=== PATIENT | female | born 1950 | race Caucasian/White ===

== ENCOUNTER 2020-01-20 10:33 | Outpatient (CLI) | payer BC, SELFPAY ==
--- NOTE | 2020-01-20 11:00 | USCV_ITS ---
Awilda Martin Age: 69 Gender: F : 1950 Exam Date: 01/20/2020 11:13 Ordering Phys: Edilson Mijares MD ([email or web address]) Technologist: KOURTNEY SEBASTIAN [place] [facility] [place]: H[place]ORY: PROCEDURES: FINDINGS: There is no evidence of bilateral deep vein thrombosis. No evidence of superficial thrombosis in the bilateral saphenous system. There is no evidence of reflux in the deep system on the right. There is evidence of reflux in the popliteal vein in the deep system on the left. No venous reflux noted in the bilateral greater saphenous vein. No venous reflux noted in the bilateral small saphenous vein. The veins were found to be easily compressible with spontaneous blood flow. Non pulsatile flow pattern. CONCLUSIONS No evidence of DVT in the above-mentioned identifiable veins. Significant venous reflux of greater than 1000 ms was noted in the left popliteal vein No significant venous reflux was noted in the superficial veins Venous dimensions and depth from the surface are as mentioned above Dr Charly Lund MD [facility] (Electronically Signed) Final Date: 20 January 2020 17:38 S
== END 2020-01-20 10:34 | disposition home or self-care (01) ==
LOC: RAD 10:36
PROVIDERS: PCP Family Medicine; Visit Provider Internal Medicine Cardiovascular Disease
DX: I83.893 Varicose veins of bilateral lower extremities with other complications (principal)
CPT/HCPCS: 93970

== ENCOUNTER 2020-09-16 12:04 | Outpatient (CLI) | payer MEDICARE, SELFPAY ==
--- NOTE | 2020-09-16 12:45 | USCV_ITS ---
Awilda Martin Age: 70 Gender: F : 1950 Exam Date: 09/16/2020 12:24 Ordering Phys: Edilson Mijares MD ([email or web address]) Technologist: Donya Wyman [place]am Location: [facility] [place]ication: HISTORY: PROCEDURES: FINDINGS: All deep veins demonstrated compressibility without evidence of intraluminal thrombus or increased echogenicity. Reflux determinations were made with the patient in the dependent position, the weight being on the contralateral leg. Vein measurements and reflux times are listed below were applicable. Venous reflux is demonstrated in the RIGHT greater saphenous vein with a spectral Doppler display of greater than 500 milliseconds at the level below the knee. Venous reflux is demonstrated in the LEFT greater saphenous vein with a spectral Doppler display of greater than 500 milliseconds at the level distal to the SFJ and below the knee. The veins were found to be easily compressible with spontaneous blood flow. CONCLUSIONS 1. No evidence of DVT in the above-mentioned identifiable veins. 2. Significant venous reflux of greater than 500 ms were noted at the below-knee segment of the greater saphenous vein on the right side. The venous segment was 0.55 cm in diameter and at a depth of 2.32 cm from the surface. 3. On the left side, significant venous reflux of greater than 500 ms were noted at the saphenofemoral junction and at the below-knee segment of the greater saphenous vein. These venous segments were 0.64 and 0.32 cm in diameter respectively. They were greater than 1 cm deep from the surface 4. No deep vein thrombosis or any significant reflux in the deep veins. Dr Charly Lund MD [facility] (Electronically Signed) Final Date: 18 September 2020 22:22 S
== END 2020-09-16 12:05 | disposition home or self-care (01) ==
PROVIDERS: PCP Family Medicine; Visit Provider Internal Medicine Cardiovascular Disease
DX: I83.893 Varicose veins of bilateral lower extremities with other complications (principal); I87.2 Venous insufficiency (chronic) (peripheral)
CPT/HCPCS: 93970

== ENCOUNTER 2020-10-21 08:56 | Day surgery (SDC) | payer MEDICARE, SELFPAY ==
[2020-10-20 11:34] LABS: Basophils # 0.1 10^3/uL (0.0-0.1); Eosinophils # 0.5 10^3/uL (0.0-0.8); Eosinophils % 6.6 %; Hematocrit 38.7 % (37.0-47.0); Hemoglobin 11.9 g/dL (11.5-15.3); Lymphocytes # 1.4 10^3/uL (0.8-4.8); Lymphocytes % 18.4 %; Mean Corpuscular HGB Conc 30.7 g/dL (30.0-36.0); Mean Corpuscular Hemoglobin 29.2 pg (28.0-34.0); Mean Corpuscular Volume 95.1 fL (81-99); Mean Platelet Volume 11.2 fL (7.4-10.4); Monocytes # 0.7 10^3/uL (0.2-0.9); Neutrophils # 5.03 10^3/uL (1.8-7.7); Neutrophils % 64.6 %; Nucleated Red Blood Cells % 0 %; Platelet Count 208 10^3/cmm (130-400); Red Blood Count 4.07 10^6/uL (4.1-5.3); Red Cell Distribution Width 13.2 % (12.1-15.1); White Blood Count 7.8 10^3/uL (4.0-10.0)
[2020-10-20 12:04] LABS: Blood Urea Nitrogen 16 mg/dL (8-23); Calcium 9.5 mg/dL (8.5-10.5); Carbon Dioxide 29 mmol/L (22-29); Chloride 101 mmol/L (98-107); Glucose 111 mg/dL (65-115); Osmolality Calculated 288 mOsm/kg (285-295); Sodium 138 mmol/L (136-145)
--- NOTE | 2020-10-21 09:00 | USCV_ITS ---
Awilda Martin Age: 70 Gender: F : 1950 Exam Date: 10/21/2020 09:29 Ordering Phys: Edilson Mijares MD Technologist: Mary Deluca Exam Location: [facility] – [place] Indication: HISTORY: ABLATION PROCEDURES: guidance provided in CDL for ablation of left GSV FINDINGS: guidance provided in CDL for ablation of left GSV The common femoral, saphenofemoral junction, distal to the saphenofemoral junction and the proximal segment of the greater saphenous vein were identified and interrogated. The segments were found to be patent with no evidence of thrombus. No measurements were performed CONCLUSIONS Patent saphenofemoral junction, distal to the saphenofemoral junction and proximal greater saphenous vein segments. No evidence of venous thrombosis in these segments Dr Charly Lund MD [facility] (Electronically Signed) Final Date: 22 October 2020 08:28 S
[2020-10-21 09:20] VITALS: BP 191/95; PULSE 67; RESP 18; TEMP 36.8; O2SAT 96; BMI 38.0
[2020-10-21] MEDS: diazePAM 5 mg Tablet 10 MG PO (09:20)
--- NOTE | 2020-10-21 09:25 | W.PM.OPSFHP ---
Same Day Surgery H&P Indication for Procedure/HPI DATE OF PROCEDURE: October 21, 2020 CHIEF COMPLAINT/INDICATIONFOR SURGICAL PROCEDURE: Symptomatic varicose veins with CEAP classification of 4a PREOP DIAGNOSIS: Symptomatic varicose veins with significant more than 500 ms reflux PLANNED PROCEDRUE: Operation Date: 10/21/20 10:00 Proposed Procedures p Venous Ablations 00415 I83.893(Not Applicable) - Edilson Mijares MD 70-year-old female past medical history significant for obesity congestive heart failure hypertension who has been struggling with lower extremity cramps pain edema neuropathy and worsening of varicose veins for the last 3 years. She has failed compression stocking over last 6-month or more. Ultrasound for reflux study confirmed more than 500 ms of significant reflux at the level of saphenofemoral junction on the left and below the knee as well as in the right leg below knee. She is more symptomatic with left than the right leg. Today she is here for scheduled left great saphenous vein ablation. Patient has been discussed in detail all the risk benefit and alternative of the procedure by myself. She has been explained the risk for foot drop due to neuropathy, skin burn, DVT, pulmonary embolism, worsening of varicose veins as a result of procedure. She understands it clearly and would like to proceed with it. Medications/Allergies* Home Medications Medication Instructions Recorded Confirmed Type acetaminophen 500 mg tablet 500 mg PO Q6H PRN 12/23/19 10/20/20 History ergocalciferol (vitamin D2) 1,250 50,000 unit PO DAILY cap 12/23/19 10/20/20 History mcg (50,000 unit) capsule latanoprost 0.005 % eye drops 1 drop OPHTHALMIC (EYE) DAILY 12/23/19 10/20/20 History oxybutynin chloride 15 mg 15 mg PO DAILY 12/23/19 10/20/20 History tablet,extended release 24 hr tramadol 50 mg tablet 50 mg PO Q8H PRN 12/23/19 10/20/20 History allopurinol 300 mg tablet 300 mg PO DAILY tab 02/20/20 10/20/20 History lisinopril 10 mg tablet 10 mg PO DAILY tab 02/20/20 10/20/20 History aspirin 81 mg tablet,delayed 81 mg PO DAILY 08/27/20 10/20/20 History release atenolol 25 mg tablet 25 mg PO BID tab 08/27/20 10/20/20 History chlorthalidone 25 mg tablet 25 mg PO DAILY 08/27/20 10/20/20 History sitagliptin 100 mg tablet 50 mg PO DAILY tab 08/27/20 10/20/20 History Allergies/Adverse Reactions Allergy/AdvReac Type Severity Reaction Status Date / Time baclofen Allergy Unknown Unknown Verified 02/20/20 15:48 ibuprofen Allergy Unknown Unknown Verified 02/20/20 15:48 metformin Allergy Unknown Unknown Verified 02/20/20 15:48 naproxen Allergy Unknown Unknown Verified 02/20/20 15:48 prednisone Allergy Unknown Unknown Verified 02/20/20 15:48 Pertinent History/Comorbid Conditions* Medical History (Updated 08/31/20 @ 21:23 by Edilson Mijares MD) Diastolic heart failure GERD (gastroesophageal reflux disease) HTN (hypertension) Varicose veins of bilateral lower extremities with other complications Family History (Updated 12/23/19 @ 11:17 by Keri Buchanan LPN) Diabetes Brother Heart disease Father Hypertension Mother Multiple myeloma Father Social History Smoking and tobacco status: never smoked Pertinent Exam Findings alert, oriented x 3 and clear to auscultation bilaterally Recommendations Surgery/Procedure today Coding Level of Care Code New 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
[2020-10-21] MEDS: nitroglycerin 1 gm/inch oint Pkt 1 INCH TOPICAL (10:00)
[2020-10-21 10:45] VITALS: BP 167/76; PULSE 67; RESP 18; TEMP 36.8; O2SAT 95
--- NOTE | 2020-10-21 10:45 | P.PCN_ITS ---
Procedure Note: Date of procedure: 10/21/20 Pre-procedure diagnosis: Symptomatic Varicose Vein Procedure: Status post radiofrequency ablation of left great saphenous vein Other Information: The insufficient saphenous vein of the left side verified by ultrasound and diagrammed on the overlying skin. The varicose tributary veins and suitable access sites were identified and mapped. The affected left great saphenous vein area prepped and draped in the usual sterile fashion. The patient was placed in reverse Trendelenburg position. Tumescent was instilled in the skin overlying the access site for local an esthesia. The vein was accessed PROXIMAL, MID, DISTAL - THIGH/CALF using ultrasound guidance and the Seldinger technique, a guidewire was introduced through the needle, which was then exchanged over the guidewire for a 7F sheath. The RF catheter was placed on the sterile field, flushed and wiped down, prepared, and connected by a sterile cable. The patient was placed in Trendelenburg position. After RF catheter position was verified by ultrasound, tumescent anesthesia was infiltrated, under ultrasound guidance, precisely into the perivenous compartment along the entire length of vein. After the RF catheter position was again confirmed with ultrasound imaging, and under direct external compression along the length of the heating element, RF energy was applied. The vein was segmentally ablated until the treatment length is completed. Device temperature was maintained at 120 +/- degrees C with an initial power level of 40W dropping to below 20W for each treatment. Total vein length treated 32 cm. Total cycles of RF 10. Time 3 minutes 20 seconds . Repeat ultrasound of the left great saphenous vein was performed, confirming successful treatment. The catheter and sheath were withdrawn and hemostasis established with direct pressure. After assuring hemostasis, the skin incision over the saphenous vein was closed with a bandage and graduated compression stocking( (s) was applied from the level of the foot to the most proximal length of the thigh. Tumescent used 561 mL. Normal saline waste 80 mL. Lidocaine wasted 10 mL. 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
== END 2020-10-21 11:10 | disposition home or self-care (01) ==
PROVIDERS: PCP Family Medicine; Visit Provider Internal Medicine Cardiovascular Disease
DX: I83.893 Varicose veins of bilateral lower extremities with other complications (principal); Z79.82 Long term (current) use of aspirin; I11.0 Hypertensive heart disease with heart failure; I50.30 Unspecified diastolic (congestive) heart failure; K21.9 Gastro-esophageal reflux disease without esophagitis; Z83.3 Family history of diabetes mellitus; Z82.49 Family history of ischemic heart disease and other diseases of the circulatory system
CPT/HCPCS: 36415; 36475; 80048; 85025; 85610; C1769; C1888; C1894

== ENCOUNTER 2020-10-28 08:19 | Outpatient (CLI) | payer MEDICARE, SELFPAY ==
--- NOTE | 2020-10-28 08:45 | USCV_ITS ---
NOTE: Report was unsigned for reason: Order was edited. Original Signature date and time was: 11/10/20 @0920 Awilda Martin Age: 70 Gender: F : 1950 Exam Date: 10/28/2020 08:45 Ordering Phys: Edilson Mijares MD ([email or web address]) Technologist: aMry Deluca [place] [facility] [place] [facility] [place] Indication: POST ABLATION HISTORY: Post ablation PROCEDURES: Venous duplex imaging was performed in only the left lower extremity. The following venous structures were evaluated: common femoral vein, profunda vein, proximal portion of the greater saphenous vein, superficial femoral vein, and the popliteal vein. In addition, the posterior tibial and peroneal trunk were evaluated. Grayscale and doppler images were obtained. Reflux maneuvers were performed with patient in the standing position. FINDINGS: No evidence of DVT seen in any deep vessels visualized at this time. GSV is has been ablated. No thrombus seen at or near the junction. Patent saphenofemoral junction. The inferior epigastric vein was not visualized. The deep veins were found to be easily compressible with spontaneous blood flow. CONCLUSIONS 1. No evidence of DVT. 2. Patent saphenofemoral junction. 3. The greater saphenous vein appears to be ablated Dr Charly Lund MD [facility] (Electronically Signed) Final Date: 10 Nov 2020 09:20 S MTDD
== END 2020-10-28 08:20 | disposition home or self-care (01) ==
LOC: RAD 08:28
PROVIDERS: PCP Family Medicine; Visit Provider Internal Medicine Cardiovascular Disease
DX: I83.893 Varicose veins of bilateral lower extremities with other complications (principal)
CPT/HCPCS: 93971

== ENCOUNTER → 2022-05-11 09:14 | Outpatient (BNVA) | payer MEDICARE, SELFPAY | PROVIDERS: PCP Family Medicine; Visit Provider Podiatrist Foot & Ankle Surgery | DX: S90.852A Superficial foreign body, left foot, initial encounter (principal); X58.XXXA Exposure to other specified factors, initial encounter; L03.116 Cellulitis of left lower limb | CPT/HCPCS: 10120; 73620; 73630; 87070; 87075; 87077; 87186; 87205; 99204 ==

== ENCOUNTER → 2022-05-18 10:50 | Outpatient (BNVA) | payer MEDICARE, SELFPAY | PROVIDERS: PCP Family Medicine; Visit Provider Podiatrist Foot & Ankle Surgery | DX: S90.852D Superficial foreign body, left foot, subsequent encounter (principal); X58.XXXD Exposure to other specified factors, subsequent encounter; L03.116 Cellulitis of left lower limb | CPT/HCPCS: 99213 ==

== ENCOUNTER 2022-11-23 17:11 | Emergency (ER) | payer MEDICARE, SELFPAY ==
[2022-11-23 17:27] VITALS: BP 161/69; PULSE 70; RESP 18; O2SAT 98
--- NOTE | 2022-11-23 17:36 | ECG_ITS ---
[facility] Test Date: 2022-11-23 Pat Name: Awilda Martin Department: Room: Gender: Female [employer]er [employer]: : 1950 Requested By: Aaron Simon Order Number: [id number] Teri MD: Charly Lund M.D. Measurements Intervals [place] Rate: 82 P: 43 AR: 172 QRS: 6 QRSD: 82 T: 50 QT: 411 QTc: 482 Interpretive Statements SINUS RHYTHM WITH FREQUENT SUPRAVENTRICULAR PREMATURE COMPLEXES POSSIBLE ANTERIOR MYOCARDIAL INFARCTION , PROBABLY OLD [30 ms Q WAVE IN V3/V4, OR R < 0.2 mV IN V4] ABNORMAL RHYTHM ECG INTERPRETATION BASED ON A DEFAULT AGE OF 40 YEARS No previous ECG available for comparison Electronically Signed On 11-23-2022 22:23:45 CDT by Charly Lund M.D. [email or web address]
--- NOTE | 2022-11-23 17:42 | XRR_ITS ---
PROCEDURE INFORMATION: Exam: XR Chest Exam date and time: 11/23/2022 5:47 PM Age: 72 years old Clinical indication: Shortness of breath; Additional info: Cp TECHNIQUE: Imaging protocol: Radiologic exam of the chest. Views: 1 view. COMPARISON: No relevant prior studies available. FINDINGS: Lungs: There is minimally increased lung markings, which can be seen in the setting of mild pulmonary congestion. Streaky bibasilar atelectasis noted. Pneumonia should be excluded clinically. Pleural spaces: Unremarkable. No pleural effusion. No pneumothorax. Heart/Mediastinum: Mildly enlarged heart. Bones/joints: Degenerative changes of the spine seen. XR/XR chest 1V portable [id number] IMPRESSION: Nonspecific imaging findings, which can be seen with mild pulmonary congestion or pneumonia. Clinical correlation is recommended. Marked
--- NOTE | 2022-11-23 17:43 | ED_ITS ---
HPI - Chest Pain General: Chief Complaint: Chest Pain Stated Complaint: A fib Time Seen by Provider: 11/23/22 17:18 Source: patient Mode of arrival: EMS Limitations: no limitations History of Present Illness: This patient was referred to the emergency department from the [facility] in [place]. The patient states that she was seen as an ER follow-up. She apparently had low potassium a few days ago and they had given her multiple dose of potassium in the emergency department in [place] and then sent home and told to hold off on her diuretics. She states the last couple days she has had increasing swelling of her legs but she started wearing her support hose and that is improved some. She apparently was noted to be in atrial fibrillation at the clinic and was sent to this emergency department. She is unaware of any history of a any kind of arrhythmia to include atrial fibrillation etc. She does admit that occasionally she feels what she describes as heaviness feeling in her chest but it does not come on with activity she seems to notice it when she is quiet and lying in bed at times. She denies syncope. She denies any shortness of breath. 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 She denies any recent illness and has been eating and drinking normally. She is a non-smoker, does not use alcohol. She denies any other constitutional complaints at this time. She does have a history of heart failure and was previously followed in cardiology clinic at this facility. Associated symptoms: Deny dyspnea, fever(s), nausea, palpitations, syncope or vomiting Review of Systems Const: Denies: fever(s) or chills Eyes: Denies: change in vision ENMT: Denies: throat pain, odynophagia, nasal discharge or nasal congestion Card: Reports: edema; Denies: chest pain, palpitations, irregular heart rhythm, syncope or pre-syncope Resp: Denies: dyspnea, productive cough or non-productive cough GI: Denies: nausea, vomiting or diarrhea : Denies: difficulty voiding, dysuria or urinary frequency Musc: Reports: extremity swelling; Denies: neck pain, back pain or extremity pain Skin/Breast: Denies: rash or pruritus Neuro: Denies: headache(s), numbness in extremities or weakness in extremities PFS ED PFSH: Medical History Asthma Diabetes mellitus Diabetic neuropathy Diastolic heart failure Fibromyalgia GERD (gastroesophageal reflux disease) HTN (hypertension) Hyperlipidemia Osteoarthritis Sjogrens syndrome Varicose veins of bilateral lower extremities with other complications Surgical History S/P cataract extraction S/P cholecystectomy S/P hysterectomy S/P knee replacement Status post laser ablation of incompetent vein Family History Mother Hypertension CAD (coronary artery disease) Cancer Stroke Father Multiple myeloma Heart disease CAD (coronary artery disease) Dementia Brother Diabetes Denies family history of Clotting disorder Chronic kidney disease (CKD) Suicide Anesthesia complication Bleeding disorder Lung disease Social History Alcohol intake: never Substance/Drug Use: never Physical Exam Narrative: EXAM NARRATIVE: She is quite alert and animated and answers questions in a goal-directed fashion and appears to be in no acute distress. No dyspnea with conversation. Const: COMMON NORMALS: no acute distress, average body habitus and patient oriented x3 GENERAL APPEARANCE: cooperative and comfortable HENMT: COMMON NORMALS: normocephalic, Normal nasal mucous membranes and turbinates present and moist oral mucous membranes HEAD & SCALP: no rmocephalic NOSE: Normal nasal mucous membranes and turbinates present Eye: COMMON NORMALS: Equal, round and reactive pupils present, EOMs intact bilaterally and conjunctivae normal CONJUNCTIVA: Yes conjunctivae normal PUPIL: Yes Equal, round and reactive pupils present Neck/C-Spine: COMMON NORMALS: full ROM, no lymphadenopathy, supple, no JVD and Thyroid normal THYROID: Thyroid normal Chest: COMMONS NORMALS: normal inspection of the chest and normal palpation of entire chest wall Resp: COMMON NORMALS: normal respiratory effort, No use of accessory muscles and clear to auscultation bilaterally AUSCULTATION: clear to auscultation bilaterally Cardio: COMMON NORMALS: no JVD, No murmurs present (Cardio) and Peripheral pulses 2+ throughout RHYTHM: abnormal rhythm irregularly irregular PERIPHERAL PULSES: Peripheral pulses 2+ throughout GI: COMMON NORMALS: Normal to inspection, nondistended, normoactive bowel sounds present, Soft to palpation and non-tender PALPATION: Yes Soft to palpation : COMMON NORMALS: Yes no CVA tenderness BLADDER/KIDNEY EXAM: Yes no CVA tenderness Back/Pelvis: COMMON NORMALS: no CVA tenderness, thoracic and lumbar spine normal to inspection, no thoracic nor lumbar tenderness and straight leg raise negative bilaterally Extremity: COMMON NORMALS: normal to inspection, capillary refill normal and no calf tenderness NARRATIVE EXTREMITY EXAM: 2+ pretibial edema bilaterally. No erythema. Neurovascular intact. Neuro: COMMON NORMALS: patient oriented x3, moves all extremities, no focal motor deficits and no sensory deficits noted CRANIAL NERVES: Yes CN normal except as noted Psych: COMMON NORMALS: mental status grossly normal Skin: COMMON NORMALS: no rashes or lesions noted, turgor normal and no jaundice GENERAL SKIN EXAM: no rashes or lesions noted and turgor normal Course Reevaluation(s): Reevaluation #1: Patient remains clinically stable and subjectively improved. She has had good urine output from her Lasix and has not displayed any sustained arrhythmias. He is not having ongoing symptoms of chest pain, shortness of breath etc. at this t faisal. We reviewed and discussed current findings and their implications with both the patient and now family who are present. Discussed continued observation versus continued treatment at home with diuretics, magnesium, potassium replacement. She voiced understanding of her discussion and opted for the latter with cardiology follow-up to be arranged. Also discussed return precautions in detail. Time: 22:48 Vital Signs: Vital signs: Vital Signs Pulse Rate 65 11/23/22 22:30 Respiratory Rate 19 H 11/23/22 22:30 Blood Pressure 150/61 11/23/22 22:30 Pulse Oximetry 99 11/23/22 22:30 Oxygen Delivery Me thod Nasal Cannula 11/23/22 22:30 Oxygen Flow Rate 2 11/23/22 22:30 MDM - Chest Pain Medical Decision Making This patient with a known history of diastolic congestive heart failure was referred to the emergency department from primary care clinic. She was seen there in a follow-up from an emergency department visit at [place]. She was noted to have some heart rhythm irregularities and was not seen by her regular physician and wind up being referred to this facility. She previously sought care through cardiology services here but has not seen anyone in this facility for approximately 3 years. She has previously had her diuretics held for several days due to issues with her potassium. She states she has had some increasing lower extremity edema. Clinical examination revealed her to be alert in no acute distress. Focal findings on her examination included some pretibial lower extremity edema. No evidence of auscultatory findings on the chest examination of concern. She did have occasional extrasystole on her electronic device monitor as well as subsequent EKGs but no ischemic changes. Screening laboratories were obtained to evaluate for heart failure versus ACS versus other potential etiologies of her symptoms. She did not display any signs to suggest heart block, ischemic changes etc. Chest x-ray showed some mild pulmonary congestion and her BNP was elevated without any prior available at this facility for comparison. Initial troponin was slightly elevated but again no dynamic EKG changes noted and subsequent troponin was essentially unchanged making this troponin elevation likely due to her chronic diastolic heart failure and not ongoing ischemia at this time. We received the benefit of IV diuretics as well as oral potassium and magnesium replacement. She is stable at this time but we did discuss the need to continue ongoing magnesium therapy and addition of potassium therapy to ensure that she is able to maintain a normal serum potassium level. A consult was also placed in via high school social studies teacher to have her in cardiology clinic for follow-up for her heart failure and possible repeat echocardiogram. And additional medication adjustments as indicated. We also discussed return precautions in detail. They were appreciative of care and voiced understanding. Medical Records I reviewed the patient's medical records. Prior history of diastolic heart failure. Lab Data I reviewed the patient's lab results. 11/23/22 19:09 11/23/22 19:09 Radiology Impressions Chest X-Ray 11/23/22 17:42 IMPRESSION: Nonspecific imaging findings, which can be seen with mild pulmonary congestion or pneumonia. Clinical correlation is recommended. Marked Laboratory Results WBC 6.5 10^3/uL (4.0-10.0) 11/23/22 19:09 RBC 3.90 10^6/uL (4.1-5.3) L 11/23/22 19:09 Hgb 11.8 g/dL (11.5-15.3) 11/23/22 19:09 Hct 36.7 % (37.0-47.0) L 11/23/22 19:09 MCV 94.1 fl (81-99) 11/23/22 19:09 MCH 30.3 pg (28.0-34.0) 11/23/22 19:09 MCHC 32.2 g/dL (30.0-36.0) 11/23/22 19:09 RDW 14.0 % (12.1-15.1) 11/23/22 19:09 Plt Count 147 10^3/cmm (130-400) 11/23/22 19:09 MPV 12.2 fL (7.4-10.4) H 11/23/22 19:09 Neut % (Auto) 65.7 % 11/23/22 19:09 Lymph % (Auto) 20.1 % 11/23/22 19:09 Taney % (Auto) 8.4 % 11/23/22 19:09 Eos % (Auto) 4.9 % 11/23/22 19:09 Baso % (Auto) 0.6 % 11/23/22 19:09 Neut # (Auto) 4.29 10^3/uL (1.8-7.7) 11/23/22 19:09 Lymph # (Auto) 1.3 10^3/uL (0.8-4.8) 11/23/22 19:09 Taney # (Auto) 0.6 10^3/uL (0.2-0.9) 11/23/22 19:09 Eos # (Auto) 0.3 10^3/uL (0.0-0.8) 11/23/22 19:09 Baso # (Auto) 0.0 10^3/uL (0.0-0.1) 11/23/22 19:09 Nucleated RBC % (auto) 0 % 11/23/22 19:09 Nucleated RBCs # 0.0 /100WBC 11/23/22 19:09 Sodium 142 mmol/L (136-145) 11/23/22 19:09 Potassium 3.2 mmol/L (3.5-5.1) L 11/23/22 19:09 Chloride 105 mmol/L (98-107) 11/23/22 19:09 Carbon Dioxide 28 mmol/L (22-29) 11/23/22 19:09 Anion Gap 12.2 (5-19) 11/23/22 19:09 BUN 13 mg/dL (8-23) 11/23/22 19:09 Creatinine 0.5 mg/dL (0.5-0.9) 11/23/22 19:09 GFR Calculation Not Reportable 11/23/22 19:09 Glucose 80 mg/dL (65-115) 11/23/22 19:09 Calculated Osmolality 293 mOsm/kg (285-295) 11/23/22 19:09 Calcium 8.5 mg/dL (8.5-10.5) 11/23/22 19:09 Magnesium 1.6 mg/dL (1.7-2.3) L 11/23/22 19:09 Total Bilirubin 0.4 mg/dL (0.15-1.2) 11/23/22 19:09 AST 22 U/L (0-32) 11/23/22 19:09 ALT 21 U/L (0-33) 11/23/22 19:09 Alkaline Phosphatase 70 U/L (35-105) 11/23/22 19:09 Troponin T Baseline 21 ng/L (0-10) H 11/23/22 19:09 Troponin T 120 Minute 21.49 ng/L (0-10) H 11/23/22 21:00 Delta Troponin T 0.49 ABS# (0-10) 11/23/22 21:00 NT-Pro-B Natriuret Pep 1807 pg/mL (0-125) H 11/23/22 19:09 Total Protein 6.3 g/dL (6.6-8.7) L 11/23/22 19:09 Albumin 3.5 g/dL (3.5-5.2) 11/23/22 19:09 Globulin 2.8 g/dL (1.3-4.6) 11/23/22 19:09 EKG Data EKG 1: I personally reviewed and interpreted this EKG as follows: Interpretation: Contemporaneous review of resting EKG reveals a ventricular rate of 82 bpm. Appears to be underlying sinus rhythm with occasional supraventricular extra beat. No acute ST-T wave changes noted. She has loss of R wave anteriorly suggestive of possible remote anterior infarct.No prior tracings available within the system. EKG 2: I personally reviewed and interpreted this EKG as follows: Interpretation: Repeat electrocardiogram this same visit reveals a ventricular rate of 56 bpm with a NV interval, QRS duration, corrected QT interval in the normal range. Sinus bradycardia. Evidence of she has evidence of possible sinus arrhythmia. No acute ischemic changes noted. Discharge Plan Discharge Patient Disposition: Home Clinical Impression: Diastolic heart failure Condition: Stable Prescriptions: No Action latanoprost 0.005 % drops 1 drop ophthalmic (eye) DAILY acetaminophen [Tylenol Extra Strength] 500 mg tablet 500 mg PO Q6H PRN (Reason: Pain) tramadol 50 mg tablet 50 mg PO Q8H PRN (Reason: Pain) isosorbide mononitrate 30 mg tablet extended release 24 hr 30 mg PO BID Qty: 180 3RF Januvia 100 mg tablet 50 mg PO DAILY atenolol 25 mg tablet 25 mg PO BID ergocalciferol (vitamin D2) 1,250 mcg (50,000 unit) capsule 50,000 unit PO .weekly oxybutynin chloride 15 mg tablet extended release 24 hr 15 mg PO DAILY allopurinol 300 mg tablet 300 mg PO DAILY lisinopril 10 mg tablet 10 mg PO DAILY aspirin [Adult Low Dose Aspirin] 81 mg tablet,delayed release (DR/EC) 81 mg PO DAILY amoxicillin-pot clavulanate 875-125 mg tablet 1 tab PO Q12H 10 Days Qty: 20 0RF Rx Instructions: Take one tablet by mouth every 12 hours until gone pantoprazole 40 mg tablet,delayed release (DR/EC) See Rx Instructions .ROUTE .COMPLEX Qty: 90 2RF Dose Instruction: TAKE 1 TABLET BY MOUTH EVERY EVENING Rx Instructions: TAKE 1 TABLET BY MOUTH EVERY EVENING ciprofloxacin HCl 500 mg tablet 500 mg PO Q12H 10 Days Qty: 20 0RF Rx Instructions: Take one tablet by mouth every 12 hours until gone Discharge Orders: Discharge ED (Routine); Ordered 11/23/22 Ordered By: Aaron Simon Referrals: Shavon Haywood DO [Primary Care Provider] - 2 weeks (Hypokalemia and hypomagnesemia) Discharge Diet: Low Salt Discharge Activity: Increase activity as tolerated Patient Instructions: Opioid Safety, Pain Management Activity Restrictions/Additional Instructions: Resume all your usual medications to include your diuretic as well as your potassium. Obtain magnesium oxide 400 mg [id number] and take 1 pill daily in addition to your other medications. We also recommend taking your second diuretic pill earlier in the day perhaps approximately 5 PM to allow for better sleep hygiene. We have placed a consult for cardiology and you should be receiv ing communication via high school social studies teacher in the cardiology clinic for follow-up appointment within the next 2 to 3 weeks. We also recommend following up with your doctor in approximately 2 weeks to repeat blood test for potential potassium and magnesium levels. If it anytime you develop sustained chest pain greater than 20 to 30 minutes, shortness of breath, any concerns whatsoever return to this or the nearest emergency department. 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
[2022-11-23 18:55] VITALS: BP 154/67; PULSE 66; RESP 16; O2SAT 99
[2022-11-23 19:29] LABS: Basophils % 0.6 %; Eosinophils # 0.3 10^3/uL (0.0-0.8); Eosinophils % 4.9 %; Hematocrit 36.7 % (37.0-47.0); Hemoglobin 11.8 g/dL (11.5-15.3); Lymphocytes # 1.3 10^3/uL (0.8-4.8); Lymphocytes % 20.1 %; Mean Corpuscular HGB Conc 32.2 g/dL (30.0-36.0); Mean Corpuscular Hemoglobin 30.3 pg (28.0-34.0); Mean Corpuscular Volume 94.1 fl (81-99); Mean Platelet Volume 12.2 fL (7.4-10.4); Monocytes # 0.6 10^3/uL (0.2-0.9); Monocytes % 8.4 %; Neutrophils # 4.29 10^3/uL (1.8-7.7); Neutrophils % 65.7 %; Nucleated Red Blood Cells % 0 %; White Blood Count 6.5 10^3/uL (4.0-10.0)
--- NOTE | 2022-11-23 19:43 | ECG_ITS ---
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 Measurements Intervals Bagley Rate: 56 P: 87 WY: 184 QRS: 9 QRSD: 77 T: 42 QT: 447 QTc: 435 Interpretive Statements SINUS BRADYCARDIA WITH MARKED SINUS ARRHYTHMIA POSSIBLE ANTERIOR MYOCARDIAL INFARCTION , PROBABLY OLD [30 ms Q WAVE IN V3/V4, OR R < 0.2 mV IN V4] Compared to ECG 11/23/2022 17:32:12 Sinus rhythm no longer present Myocardial infarct finding still present Electronically Signed On 11-23-2022 22:55:15 CDT by Charly Lund M.D. [id number]
[2022-11-23 19:56] LABS: Troponin(5th) Baseline 21 ng/L (0-10)
[2022-11-23 19:58] LABS: Platelet Count 147 10^3/cmm (130-400)
[2022-11-23 20:00] VITALS: BP 157/66; PULSE 55; RESP 20; O2SAT 99
[2022-11-23 20:05] LABS: Alanine Aminotransferase 21 U/L (0-33); Albumin Level 3.5 g/dL (3.5-5.2); Alkaline Phosphatase 70 U/L (35-105); Blood Urea Nitrogen 13 mg/dL (8-23); Calcium 8.5 mg/dL (8.5-10.5); Carbon Dioxide 28 mmol/L (22-29); Chloride 105 mmol/L (98-107); Globulin 2.8 g/dL (1.3-4.6); Glucose 80 mg/dL (65-115); Magnesium 1.6 mg/dL (1.7-2.3); NT Pro B Type Natriuretic Pept 1807 pg/mL (0-125); Osmolality Calculated 293 mOsm/kg (285-295); Sodium 142 mmol/L (136-145); Total Bilirubin 0.4 mg/dL (0.15-1.2); Total Protein 6.3 g/dL (6.6-8.7)
[2022-11-23 20:08] LABS: Anion Gap 12.2 (5-19); Aspartate Amino Transferase 22 U/L (0-32); Potassium 3.2 mmol/L (3.5-5.1)
[2022-11-23 21:00] VITALS: BP 165/71; PULSE 68; RESP 16; O2SAT 100
[2022-11-23] MEDS: magnesium oxide 400 mg tablet 800 MG PO (21:15)
[2022-11-23 21:22] LABS: Troponin 5 2HR 21.49 ng/L (0-10)
[2022-11-23 21:23] LABS: Troponin 5 2HR Delta 0.49 ABS# (0-10)
[2022-11-23] MEDS: FUROsemide 10 mg/mL SDV 4mL 40 MG IVP (21:51)
[2022-11-23] MEDS: potassium bicarb 25 mEq Tablet PO (21:51)
[2022-11-23 22:30] VITALS: BP 150/61; PULSE 65; RESP 19; O2SAT 99
[2022-11-23 22:58] VITALS: BP 156/67; PULSE 68; RESP 23; O2SAT 98
--- NOTE | 2022-11-24 10:57 | PC.NURSE ---
Addendum entered by Megan Purvis 01/26/23 07:05: Patient had a follow up appointment scheduled with heart care - patient did attend appointment Addendum entered by Megan Purvis 11/29/22 12:32: Patient has a follow up appointment scheduled for Friday, January 20, 2023 at 11:[address] Perla at [facility]. Original Note: Patient seen in the ED and referred to [facility] for CHF. TCM sent message to call pt with an appt.
== END 2022-11-23 23:06 | disposition home or self-care (01) ==
PROVIDERS: Emergency Provider Emergency Medicine; PCP Family Medicine
DX: I11.0 Hypertensive heart disease with heart failure (principal); I50.30 Unspecified diastolic (congestive) heart failure; Z79.82 Long term (current) use of aspirin; E11.9 Type 2 diabetes mellitus without complications; E78.5 Hyperlipidemia, unspecified
CPT/HCPCS: 36415; 71045; 80053; 83735; 83880; 84484; 85025; 93005; 96374; 99285; J1940

== ENCOUNTER → 2023-01-20 09:23 | Outpatient (BNVA) | payer MEDICARE, SELFPAY | PROVIDERS: PCP Family Medicine; Visit Provider Internal Medicine Cardiovascular Disease | DX: I11.0 Hypertensive heart disease with heart failure (principal); I50.30 Unspecified diastolic (congestive) heart failure | CPT/HCPCS: 99214 ==

== ENCOUNTER 2023-01-25 09:59 | Outpatient (CLI) | payer MEDICARE, SELFPAY ==
--- NOTE | 2023-01-25 10:15 | USCV_ITS ---
Awilda Martin Age: 72 Gender: F : 1950 Exam Date: 01/25/2023 10:16 Ordering Phys: Georgiana Perla MD ([email or web address]) Technologist: Star Garcia Exam Location: [facility] [place] Indication: surgical clearance BP: 142 / 72 HR: 78 Rhythm: Sinus Technical Quality: Adequate MEASUREMENTS (Male / Female) Normal Values 2D ECHO LVOT Diameter 2.0 cm LV Ejection Fraction MOD 2C 67.3 % LV Ejection Fraction 2C AL 67.1 % LA Diameter 4.2 cm LA Width 3.7 cm LA Height 5.0 cm RA Width 4.0 cm RA Height 5.3 cm Aorta at Sinotubular Diameter 2.2 cm IVC Diameter 1.8 cm M-MODE Aortic Annulus Diameter 2.6 cm LA Ao Ratio MM 1.5 MV E Point Septal Separation 0.4 cm DOPPLER AV Peak Velocity 127.0 cm/s LVOT Peak Velocity 100.0 cm/s AV Area Cont Eq vti 2.8 cm squared AV Area Cont Eq pk 2.5 cm squared MV Peak Velocity 170.0 cm/s MV Area PHT 3.7 cm squared Mitral E to A Ratio 3.5 MV E' Velocity 72.0 cm/s Mitral E to MV E' Ratio 11.6 Mitral E to LV E' Lateral Ratio 10.9 Mitral E to LV E' Septal Ratio 12.6 TR Peak Velocity 240.9 cm/s TR Peak Gradient 23.2 mmHg TR Mean Velocity 193.2 cm/s TR Mean Gradient 15.7 mmHg TR Velocity Time Integral 69.8 cm Right Atrial Pressure 3.0 mmHg Pulmonary Artery Systolic Pressu 26.2 mmHg PV Peak Velocity 77.7 cm/s RV Acceleration Time 0.1 s RV Ejection Time 0.3 s RV AcT/ET 0.4 FINDINGS Left Ventricle Normal left ventricular size, systolic function and wall thickness, with no regional wall motion abnormalities. Left ventricular ejection fraction is estimated at 70 %. Rhythm precludes evaluation of diastolic function. Right Ventricle Normal right ventricular size and systolic function. Right ventricular systolic pressure 28 mmHg. Right Atrium Normal right atrial size. Left Atrium Normal left atrial size. Mitral Valve Mild mitral annular calcification. No mitral valve stenosis. Mild mitral valve regurgitation. Aortic Valve Structurally normal trileaflet aortic valve. No aortic valve stenosis. No aortic valve regurgitation. Tricuspid Valve Structurally normal tricuspid valve. No tricuspid valve stenosis. Mild tricuspid valve regurgitation. Pulmonic Valve Structurally normal pulmonic valve. No pulmonary valve stenosis. Trace pulmonary valve regurgitation. Pericardium No pericardial effusion. Aorta Normal size aortic root and proximal ascending aorta. IVC Normal IVC dimension with >50% respiratory change of the inferior vena cava. CONCLUSIONS 1. Normal left ventricular size, systolic function and wall thickness, with no regional wall motion abnormalities. Left ventricular ejection fraction is estimated at 70 %. 2. Mild mitral and tricuspid valve regurgitation. 3. Pulmonary artery pressure estimated at 28 mm Hg. 4. No prior similar studies to compare. Georgiana Perla MD (Electronically Signed) Final Date: 26 January 2023 21:18 S
== END 2023-01-25 10:00 | disposition home or self-care (01) ==
PROVIDERS: PCP Family Medicine; Visit Provider Internal Medicine Cardiovascular Disease
DX: Z01.818 Encounter for other preprocedural examination (principal); R06.02 Shortness of breath; I34.0 Nonrheumatic mitral (valve) insufficiency; I07.1 Rheumatic tricuspid insufficiency
CPT/HCPCS: 93306

== ENCOUNTER → 2023-07-28 10:27 | Outpatient (BNVA) | payer MEDICARE, SELFPAY | PROVIDERS: PCP Family Medicine; Visit Provider Nurse Practitioner Family | DX: I11.0 Hypertensive heart disease with heart failure (principal); I50.30 Unspecified diastolic (congestive) heart failure; I48.0 Paroxysmal atrial fibrillation; I45.9 Conduction disorder, unspecified | CPT/HCPCS: 93005; 99214 ==

== ENCOUNTER → 2024-01-29 09:44 | Outpatient (BNVA) | payer MEDICARE, SELFPAY | PROVIDERS: PCP Family Medicine; Visit Provider Internal Medicine Cardiovascular Disease | DX: R61 Generalized hyperhidrosis (principal); I11.0 Hypertensive heart disease with heart failure; I50.32 Chronic diastolic (congestive) heart failure; I83.893 Varicose veins of bilateral lower extremities with other complications; E78.2 Mixed hyperlipidemia; I48.0 Paroxysmal atrial fibrillation; E08.9 Diabetes mellitus due to underlying condition without complications | CPT/HCPCS: 99215 ==

== ENCOUNTER 2024-03-15 08:55 | Outpatient (CLI) | payer MEDICARE, SELFPAY ==
--- NOTE | 2024-03-15 | ECG_ITS ---
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 Interpretive Statements NAME OF STUDY: LEXISCAN SESTAMIBI STRESS TEST INDICATION: CHF, PROCEDURE: At the baseline, the EKG revealed atrial fibrillation with a controlled ventricular response rate.. The baseline heart was 70 bpm with a blood pressue of 147/74 mm of Hg Lexiscan was infused over a period of 20 seconds. A total of 0.4 milligrams of Lexiscan was infused. The stress phase was continued for a total of 5 minutes. Heart rate at the end of the stress phase was 82 bpm with a blood pressure 147/74 mm of Hg. The EKG at the peak infusion revealed no significant changes. Sestamibi was injected 20 seconds after the Lexiscan infusion. Heart rate at the end of the recovery phase was 79 bpm with a blood pressure of 154/74 mm of Hg. CONCLUSION: 1. No significant EKG changes with the LexiScan infusion 2. No LexiScan induced chest pain or cardiac arrhythmia 3. Normal blood pressure and heart rate response 4. Sestamibi/sestamibi perfusion scan pending; see separate report. Electronically Signed On 03-15-2024 20:16:48 CDT by Charly Lund M.D. [id number]
[2024-03-15 09:16] VITALS: BMI 25.7
--- NOTE | 2024-03-15 09:18 | NMCV_ITS ---
NM rodrigo perf SPECT r/s* [id number] Awilda Martin Age: 74 Gender: F : 1950 Exam Date: 03/15/2024 10:15 Ordering Phys: Charly Lund MD ([email or web address]) Technologist: ULISES Coelho Exam Location: [facility] Indications: chf STRESS TEST Please see separate stress test report in [facility] for full findings IMAGE PROTOCOL Rest/Stress 1 Lexiscan Day Radiopharmaceutical Dose (mCi) Administration Site Administered by Rest: Tc-99m 10.8 IV Kerry Huggins, [employer] Sestamibi Stress:Tc-99m 32.9 IV Kerry Huggins, [employer] Sestamibi Rest: 15-Mar-2024 60 Discovery 630 Stress: 15-Mar-2024 30 Discovery 630 0.4mg Lexiscan. Images obtained in supine and prone position. SPECT RESULTS Technical Quality: Good Raw Data Analysis: Normal Image Corrections: No attenuation or motion correction applied Summed Stress Score: 2 Summed Rest Score: 1 Summed Difference Score: 2 PERFUSION FINDINGS Small area of slightly decreased tracer uptake was noted in the apical inferior and apical lateral region. Significant reversibility was noted in this area. FUNCTIONAL RESULTS (calculated via Gated SPECT) Stress Image LV EF (%): 69 Stress EDV (mL):84 TID: 0.94 Stress ESV (mL):26 FUNCTIONAL FINDINGS: Segmental wall motion analysis revealing no gross wall motion abnormalities IMPRESSIONS 1. Myocardial perfusion imaging revealing a small area of slight reversibility involving the apical inferior and apical lateral regions suggesting ischemia distribution of the right coronary artery/circumflex artery. 2. Normal LV ejection fraction of 69%. 3. LV wall motion analysis revealing no gross wall motion abnormalities. 4. Normal LV volume No similar previous studies are available for comparison Dr Charly Lund MD [facility] (Electronically Signed) Final Date: 15 March 2024 21:04 S
[2024-03-15] MEDS: regadenoson 0.4 Mg/5 ml Syringe IVP (11:00)
[2024-03-15 11:10] VITALS: BP 154/74; PULSE 76
== END 2024-03-15 08:56 | disposition home or self-care (01) ==
PROVIDERS: PCP Family Medicine; Visit Provider Internal Medicine Cardiovascular Disease
DX: Z98.61 Coronary angioplasty status (principal); R94.39 Abnormal result of other cardiovascular function study
CPT/HCPCS: 36415; 78452; 93017; 96374; A9500; J2785

== ENCOUNTER → 2024-08-08 12:22 | Outpatient (BNVA) | payer MEDICARE, SELFPAY | PROVIDERS: PCP Family Medicine; Visit Provider Internal Medicine Cardiovascular Disease | DX: I48.0 Paroxysmal atrial fibrillation (principal); I83.893 Varicose veins of bilateral lower extremities with other complications; I11.0 Hypertensive heart disease with heart failure; I50.32 Chronic diastolic (congestive) heart failure; E11.9 Type 2 diabetes mellitus without complications | CPT/HCPCS: 99214 ==

== ENCOUNTER 2024-08-11 18:15 | Emergency (ER) | payer MEDICARE, SELFPAY ==
[2024-08-11 18:29] VITALS: BP 188/103; PULSE 92; RESP 17; TEMP 36.7; O2SAT 99; BMI 35.4
--- NOTE | 2024-08-11 20:11 | XRR_ITS ---
PROCEDURE INFORMATION: Exam: XR Left Hand Exam date and time: 08/11/2024 8:24 PM Age: 74 years old Clinical indication: Injury or trauma; Fall; Left; Laceration to ulnar/posterior side of lt hand TECHNIQUE: Imaging protocol: Radiologic exam of the left hand. Views: 3 or more views. COMPARISON: No relevant prior studies available. FINDINGS: Bones/joints: No acute osseous abnormality. The joint spaces are maintained. First CMC joint degenerative changes. Mild interphalangeal joint degenerative changes. Soft tissues: No significant soft tissue abnormality. A radiodense foreign body can not be visualized at this time. XR/XR hand LT min 3V* [id number] IMPRESSION: As above.
--- NOTE | 2024-08-11 20:14 | W.ED.FALL ---
HPI - Fall General: Chief Complaint: Fall Stated Complaint: fall left leg, hip, back, and hand lac Time Seen by Provider: 08/11/24 19:49 Source: patient Mode of arrival: ambulatory Limitations: no limitations History of Present Illness: Patient is a 74-year-old female that presents to the emergency department with an injury to the back of her left hand after a fall. Patient is unsure why she fell on her patio but states she thinks she tripped on a crack as her patio is very rough. She states she fell straight down onto her buttocks. She denies any head injury or loss of consciousness. She states she is not on any blood thinners. She does not report any loss of bowel or bladder control. She reports some mild pain down her left thigh from where she fell and on the back of her left hand where the cut is. She is unsure of her last tetanus immunization so booster was given in the emergency department. She denies any headache or back pain at this time. She presents to the emergency department for further evaluation and treatment. Associated symptoms-after fall: Reports difficulty walking (Chronic, unchanged); Denies abdominal pain, chest pain, headache(s), hematuria or neck pain Related Data Home Medications ?Medication ?Instructions ?Recorded ?Confirmed acetaminophen 500 mg tablet 500 mg PO Q6H PRN Pain 12/23/19 08/08/24 (Tylenol Extra Strength) tramadol 50 mg tablet 50 mg PO Q8H PRN Pain 12/23/19 08/08/24 aspirin 81 mg tablet,delayed 81 mg PO DAILY 08/27/20 08/08/24 release (Adult Low Dose Aspirin) atenolol 25 mg tablet 25 mg PO BID 08/27/20 08/08/24 calcium 1,000 mg (as 1 tab PO DAILY 01/20/23 08/08/24 carbonate)-vitamin D3 20 mcg (800 unit) tablet cranberry 500 mg capsule 500 mg PO BID 01/20/23 08/08/24 potassium chloride 20 mEq 40 meq PO BID 01/20/23 08/08/24 tablet,extended release bumetanide 1 mg tablet 1 mg PO BID 01/29/24 08/08/24 latanoprost 0.005 % eye drops 1 drp ophthalmic (eye) DAILY 08/08/24 08/08/24 magnesium oxide 400 mg PO DAILY PRN 08/08/24 08/08/24 Previous Rx's ?Medication ?Instructions ?Recorded isosorbide mononitrate 30 mg 30 mg PO BID #180 tabs 12/23/19 tablet,extended release 24 hr amlodipine 5 mg tablet (Norvasc) 5 mg PO DAILY #90 tabs 08/08/24 Allergies Allergy/AdvReac Type Severity Reaction Status Date / Time baclofen Allergy Unknown Unknown Verified 08/08/24 12:57 ibuprofen Allergy Unknown Unknown Verified 08/08/24 12:57 metformin Allergy Unknown Unknown Verified 08/08/24 12:57 naproxen Allergy Unknown Unknown Verified 08/08/24 12:57 prednisone Allergy Unknown Unknown Verified 08/08/24 12:57 Review of Systems Const: Denies: fever(s) or chills Eyes: Denies: change in vision ENMT: Denies: throat pain or ear or mastoid pain Card: Reports: edema (Chronic, unchanged); Denies: chest pain Resp: Denies: dyspnea, productive cough or wheezing GI: Denies: abdominal pain, nausea or vomiting : Denies: flank pain, dysuria or hematuria Musc: Reports: other (Patient does report some left thigh pain in the muscle); Denies: neck pain or back pain Skin/Breast: Reports: other (Laceration dorsal aspect of the left hand); Denies: rash, pruritus, skin pain or skin swelling Neuro: Reports: difficulty walking (Chronic, unchanged); Denies: headache(s), numbness in extremities or weakness in extremities Psych: Denies: anxiety Endo: Denies: polyuria or polydipsia Christoph/Lymph: Denies: petechiae All/Imm: Denies: urticaria or throat swelling PFSH ED PFSH: Medical History Atrial fibrillation Osteoarthritis Fibromyalgia Hyperlipidemia Asthma Diabetic neuropathy Diabetes mellitus Sjogrens syndrome GERD (gastroesophageal reflux disease) HTN (hypertension) Varicose veins of bilateral lower extremities with other complications Diastolic heart failure Surgical History S/P cataract extraction Status post laser ablation of incompetent vein S/P hysterectomy S/P knee replacement S/P cholecystectomy Family History Mother Hypertension CAD (coronary artery disease) Cancer Stroke Father Multiple myeloma Heart disease CAD (coronary artery disease) Dementia Brother Diabetes Denies family history of Clotting disorder Chronic kidney disease (CKD) Suicide Anesthesia complication Bleeding disorder Lung disease Social History Smoking and tobacco/nicotine status: never used tobacco/nicotine Alcohol intake: never Substance/Drug Use: never Physical Exam Const: COMMON NORMALS: no acute distress, patient oriented x3 and alert EXAM LIMITATIONS: no altered mental status GENERAL APPEARANCE: cooperative ORIENTATION/CONSCIOUSNESS: Yes awake, Yes oriented to person, Yes oriented to place and Yes oriented to time; not confused HENMT: COMMON NORMALS: normocephalic, atraumatic, EAC's normal, TM's normal bilaterally (No hemotympanums) and Normal external nose present HEAD & SCALP: normocephalic and atraumatic; no abrasion and no contusion FACE & SINUS: normal facial exam NOSE: Normal external nose present EXTERNAL AUDITORY CANAL: EAC's normal TYMPANIC MEMBRANE: TM's normal bilaterally (No hemotympanums) MOUTH: Normal oral and palatal mucosa present THROAT: posterior oropharynx normal Eye: COMMON NORMALS: Equal, round and reactive pupils present, EOMs intact bilaterally and conjunctivae normal GENERAL EYE: appearance normal, both eyes and all related structures VISUAL ACUITY: Yes acuity normal CONJUNCTIVA: Yes conjunctivae normal PUPIL: Yes Equal, round and reactive pupils present EOM: No EOM abnormal (Normal extraocular movements) Neck/C-Spine: COMMON NORMALS: full ROM, supple and no meningeal signs Chest: COMMONS NORMALS: normal palpation of entire chest wall Resp: COMMON NORMALS: normal respiratory effort, No retractions and clear to auscultation bilaterally AUSCULTATION: clear to auscultation bilaterally Cardio: COMMON NORMALS: regular rate and regular rhythm RATE: regular rate RHYTHM: regular rhythm GI: COMMON NORMALS: Normal to inspection, nondistended, normoactive bowel sounds present, Soft to palpation and non-tender PALPATION: Yes Soft to palpation and No Tenderness to palpation present (GI) Extremity: COMMON NORMALS: full ROM NARRATIVE EXTREMITY EXAM: 3.5 cm laceration on the dorsal aspect of the left hand over the distal fifth metacarpal LEFT UPPER EXTREMITY: Yes hand & digits (3.5 cm lac over the dorsal aspect of the L distal fifth metacarpal) Left hand and digits: Yes ROM and Yes neurovascular exam Neuro: COMMON NORMALS: patient oriented x3 SENSORIUM/ORIENTATION: Yes alert, Yes oriented to person, Yes oriented to place and Yes oriented to time MENINGEAL SIGNS: Yes no meningeal signs CRANIAL NERVES: Yes CN normal except as noted COORDINATION/BALANCE: [id number] test normal SPEECH: speech normal GAIT: Yes Normal gait present SENSORY EXAM: Yes extremities MOTOR EXAM: 5/5 motor strength present throughout COORDINATION: [id number] test normal Psych: COMMON NORMALS: mental status grossly normal and speech normal SPEECH: Yes normal speech Skin: TRAUMA: laceration (3.5 cm left dorsal hand) flap and motor nerve function intact NAILS: normal Procedures Laceration Laceration 1: Site: hand Side (If applicable): left Size (cm): 3.5 Description: flap Depth: simple, single layer Local Anesthetic: lidocaine 1% Amount of anesthesia used (mL): 4 Pre-repair: wound explored and deep structures intact Skin layer closed with: nylon Size (cm): 4-0 Number of sutures: 5 Technique: simple, interrupted Course Vital Signs: Vital signs: Vital Signs Temperature 98.1 F 08/11/24 18:29 Pulse Rate 92 08/11/24 18:29 Respiratory Rate 17 08/11/24 18:29 Blood Pressure 188/103 08/11/24 18:29 Pulse Oximetry 99 08/11/24 18:29 Oxygen Delivery Me thod Room Air 08/11/24 18:29 MDM - Fall Medical Decision Making Patient is a 74-year-old female that presents to the emergency department with a laceration to her left hand after a fall today. She is unsure of her last tetanus immunization so a booster was given here in the emergency department. She states she was on her patio and thinks she tripped on a crack and fell onto her backside. She does report some pain to the posterior lateral thigh but states she has been able to bear weight on the extremity without difficulty. She also reports pain in her left hand. She denies any use of blood thinners. She denies any weakness, numbness or tingling. X-ray does not show any fracture of the hand. The hand was repaired with 4-0 nylon sutures. The patient was advised to keep the wound clean and dry and follow-up with her primary care provider for suture removal in 10 days. I also advised that she return to the emergency department with any worsening symptoms. The patient expressed understanding. Lab Data Radiology Impressions Hand X-Ray 08/11/24 20:11 IMPRESSION: As above. Patient: Awilda Martin Ordering Provider/Ordering MD: Rito Garcia Date of Service: 08/11/24 Procedure(s): XR hand LT min 3V* [id number] Accession Number(s): [id number] Report Number: [id number] PROCEDURE INFORMATION: Exam: XR Left Hand Exam date and time: 08/11/2024 8:24 PM Age: 74 years old Clinical indication: Injury or trauma; Fall; Left; Laceration to ulnar/posterior side of lt hand TECHNIQUE: Imaging protocol: Radiologic exam of the left hand. Views: 3 or more views. COMPARISON: No relevant prior studies available. FINDINGS: Bones/joints: No acute osseous abnormality. The joint spaces are maintained. First CMC joint degenerative changes. Mild interphalangeal joint degenerative changes. Soft tissues: No significant soft tissue abnormality. A radiodense foreign body can not be visualized at this time. XR/XR hand LT min 3V* [id number] IMPRESSION: As above. All radiology interpretation(s) finalized by discharge Critical Care Time Critical Care Time: Critical Care Time: No Discharge Plan Discharge Patient Disposition: Home Clinical Impression: Unknown tetanus toxoid immunization status Laceration of hand, left Qualifiers: Encounter type: initial encounter Foreign body presence: without foreign body Qualified Code(s): S61.412A - Laceration without foreign body of left hand, initial encounter Fall from slip, trip, or stumble Qualifiers: Encounter type: initial encounter Qualified Code(s): W01.0XXA - Fall on same level from slipping, tripping and stumbling without subsequent striking against object, initial encounter Contusion of left thigh Qualifiers: Encounter type: initial encounter Qualified Code(s): S70.12XA - Contusion of left thigh, initial encounter Condition: Stable Prescriptions: No Action acetaminophen [Tylenol Extra Strength] 500 mg tablet 500 mg PO Q6H PRN (Reason: Pain) tramadol 50 mg tablet 50 mg PO Q8H PRN (Reason: Pain) isosorbide mononitrate 30 mg tablet extended release 24 hr 30 mg PO BID Qty: 180 3RF atenolol 25 mg tablet 25 mg PO BID latanoprost 0.005 % drops 1 drp ophthalmic (eye) DAILY aspirin [Adult Low Dose Aspirin] 81 mg tablet,delayed release (DR/EC) 81 mg PO DAILY calcium carbonate-vitamin D3 1,000 mg-20 mcg (800 unit) tablet 1 tab PO DAILY potassium chloride 20 mEq tablet extended release 40 meq PO BID cranberry 500 mg capsule 500 mg PO BID Rx Instructions: administer with meals magnesium oxide 400 mg magnesium capsule 400 mg PO DAILY PRN bumetanide 1 mg tablet 1 mg PO BID amlodipine [Norvasc] 5 mg tablet 5 mg PO DAILY Qty: 90 3RF Discharge Orders: Discharge ED (Routine); Ordered 08/11/24 Ordered By: Rito Garcia Referrals: Shavon Haywood DO [Primary Care Provider] - Discharge Diet: Usual diet Discharge Activity: Resume usual activity Patient Instructions: Care For Your Stitches (ED), Contusion in Adults (ED), Opioid Safety, Pain Management Activity Restrictions/Additional Instructions: Keep the wound clean and dry. Wash the wound daily in warm, running water. Blot it dry afterwards and use [id number] antibiotic ointment as directed. Watch for signs of infection such as red streaking, pus draining, fever etc. Follow-up with your doctor, the urgent care, or the emergency department for suture removal in 10 days. Return to the emergency department with any worsening symptoms or signs of infection. Print Language: Nigerien Coding Level of Care Code ED Elderly Companion for Is[facility] Link
[2024-08-11] MEDS: lidocaine 1% 10 ML INJ SUBCUT (20:58)
[2024-08-11] MEDS: tetanus-dipt-pertussis 0.5 mL SDV IM (20:59)
[2024-08-11] MEDS: bacitracin ointment Pkt 1 EACH TOPICAL (21:02)
== END 2024-08-11 21:36 | disposition home or self-care (01) ==
PROVIDERS: Emergency Provider Physician Assistant; PCP Family Medicine
DX: S61.412A Laceration without foreign body of left hand, initial encounter (principal); W01.0XXA Fall on same level from slipping, tripping and stumbling without subsequent striking against object, initial encounter; S70.12XA Contusion of left thigh, initial encounter; E11.40 Type 2 diabetes mellitus with diabetic neuropathy, unspecified; E78.5 Hyperlipidemia, unspecified; I11.0 Hypertensive heart disease with heart failure; I50.30 Unspecified diastolic (congestive) heart failure
CPT/HCPCS: 12002; 12345; 73130; 90471; 90715; 99283

== ENCOUNTER 2024-09-13 09:20 | Outpatient (CLI) | payer MEDICARE, SELFPAY ==
--- NOTE | 2024-09-13 09:30 | USR_ITS ---
PROCEDURE INFORMATION: Exam: US Duplex Lower Extremity Veins, Bilateral Exam date and time: 09/13/2024 9:37 AM Age: 74 years old Clinical indication: Condition or disease; Varicose veins of lower extremities; Lower extremity, bilateral; Prior surgery; Surgery date: 6+ months; Surgery type: Lt leg ablation TECHNIQUE: Imaging protocol: Real-time duplex ultrasound of the bilateral extremities with 2-D shannon scale, color Doppler flow and spectral waveform analysis including responses to compression and other maneuvers (when performed) with image documentation. Complete exam focused on the lower extremity veins. COMPARISON: No relevant prior studies available. FINDINGS: Right deep veins: Unremarkable. The common femoral, femoral, proximal profunda femoral and popliteal veins are patent without thrombus. Normal Doppler waveforms. Normal compressibility and/or augmentation response. Left deep veins: Unremarkable. The common femoral, femoral, proximal profunda femoral and popliteal veins are patent without thrombus. Normal Doppler waveforms. Normal compressibility and/or augmentation response. Reflux noted in the common femoral and superficial femoral veins. Superficial veins: Greater saphenous veins at the saphenofemoral junctions are patent bilaterally without thrombus. Reflux noted in the right greater saphenous vein. Soft tissues: Unremarkable. US/CV leah dup insumartin [facility] [id number] IMPRESSION: No evidence of deep vein thrombosis.
== END 2024-09-13 09:21 | disposition home or self-care (01) ==
LOC: RAD 09:21
PROVIDERS: PCP Family Medicine; Visit Provider Internal Medicine Cardiovascular Disease
DX: I83.893 Varicose veins of bilateral lower extremities with other complications (principal)
CPT/HCPCS: 93970